=== PATIENT | male | born 1955 | race Caucasian/White ===

== ENCOUNTER 2017-06-23 12:26 | Emergency (ER) | payer OTHER ==
--- NOTE | 2017-06-23 12:46 | ED Physician Documentation ---
Trunk Injury - HISTORIAN Historian: patient - HPI Stated Complaint: back pain Chief Complaint: Trunk Injury Additional Information: he had dug a 6 foot deep by 6 foot wide trench in the ground, he was in the hole , bent over, when the wall collapsed on him. It buried him to his knees, but knocked him over backwards and his lower legs didn't move. He heard a "pop" that sounded like a shovel handle broke. 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 His pain now is mostly upper lumbar left side. Onset: minutes Where: work Context: blow Location of Pain/ Injury: lower back Severity: moderate Associated Symptoms: remembers injury, remembers coming to hosp.. denies: lost consciousness, dazed, blow to head Further Comments: no - ROS CONST: denies: recent illness NEURO/PSYCH: denies: fainting CVS/RESP: none GI/: denies: problems urinating, nausea, vomiting MS/SKIN/LYMPH: denies: leg swelling - PAST HX Other History: hypertension Immunizations: UTD Allergies/Adverse Reactions: Allergies Allergy/AdvReac Type Severity Reaction Status Date / Time No Known Allergies Allergy Unverified 06/23/17 12:41 Home Medications: Ambulatory Orders Medication Instructions Recorded Allopurinol [Zyloprim] 06/23/17 Lisinopril [Prinivil] 06/23/17 Triamterene/Hydrochlorothiazid 06/23/17 [Triamterene-Hctz 37.5-25 mg Cp] amLODIPine BESYLATE [Norvasc] 06/23/17 - SOCIAL HX Smoking History: non-smoker Alcohol Use: rarely Drug Use: none - FAMILY HX Family History: none - VITAL SIGNS Vital Signs: Vital Signs Temp Pulse Resp BP Pulse Ox 98.3 F 68 24 97/60 95 06/23/17 12:29 06/23/17 12:29 06/23/17 12:29 06/23/17 12:29 06/23/17 12:29 - REVIEWED ASSESSMENT Nursing Assessment Reviewed: Yes Vitals Reviewed: Yes ED Results Lab/Radiology - Radiology Radiology Impressions: L1 compression fracture acute, chronic arthritis , spondylosis - Orders Orders: ED Orders Category Date Time Status CT L-SPINE W/O CONTRAST Stat Exams 06/23/[address] T-SPINE W/O CONTRAST Stat Exams 06/23/17 Completed Ketorolac Tromethamine [Toradol] Med 06/23/17 13:40 Discontinued 30 mg .ROUTE .STK-MED ONE Trunk Injury Physical Exam - Physical Exam General Appearance: alert, mild distress Head: no evidence of trauma Neck: non-tender, painless ROM Eyes: EOMI ENT: nml external inspection Respiratory: chest non-tender. No: tenderness, crepitus, subcutaneous emphysema CVS: reg rate & rhythm Abdomen: non-tender Neuro/Psych: oriented x3, mood/affect nml Skin: intact, warm Back: no external sign of traum, vertebral point, limited ROM Hip/Pelvis: pelvis stable, hips non-tender Extremities: no evidence of trauma Discharge Clincal Impression: Compression fracture of lumbar vertebra Qualifiers: Encounter type: initial encounter Fracture type: closed Qualified Code(s): S32.000A - Wedge compression fracture of unspecified lumbar vertebra, initial encounter for closed fracture Lumbar back sprain Qualifiers: Encounter type: initial encounter Qualified Code(s): S33.5XXA - Sprain of ligaments of lumbar spine, initial encounter Referrals: Primary Doctor,No [Primary Care Provider] - 2 Days Home Medications: Ambulatory Orders Allopurinol [Zyloprim] 06/23/17 Lisinopril [Prinivil] 06/23/17 Triamterene/Hydrochlorothiazid [Triamterene-Hctz 37.5-25 mg Cp] 06/23/17 amLODIPine BESYLATE [Norvasc] 06/23/17 Condition: Stable Disposition: 01 HOME, SELF-CARE Decision to Admit: NO Date of Decison to Admit: 06/23/17 Decision Time: 14:26
[2017-06-23] MEDS ORDERED: KETOROLAC TROMETHAMINE 30 MG/1ML VIAL ONE (13:40)
--- NOTE | 2017-06-23 14:07 | Diagnostic Imaging Report ---
KALA NEGRON [address] [facility] [address] [place], [place]. [address] Report Submission Date: Jun 23, 2017 1:57:00 PM CDT Patient Study Name: PRINCE SHANKAR Date: Jun 23, 2017 12:49:40 PM CDT Modality Type: CT\SR Gender: M Description: CT L-SPINE W/O CONTRAS : 57 Institution: Physician: KALA NEGRON CT of the lumbar spine without contrast Clinical history: Trauma. Pain. Technique: CT of the lumbar spine is performed in contiguous axial slices without the use of contrast. Sagittal and coronal reconstructions are performed by the technologist. Findings: The alignment of the vertebrae is anatomic. Facet joints are narrowed in the mid and lower lumbar spine. The L5-S1 disc space is narrowed. There is compression fracture of the L1 vertebral body with compression of both the superior and inferior endplates with approximately 70% loss of vertebral height in the midportion of the vertebral body. There is mild buckling of the cortex in the right pedicle consistent with nondisplaced fracture extending into the pedicle. Fracture is of uncertain age, but appears to be acute. There are degenerative facet changes and hypertrophy of the ligaments as well as 2-3 mm diffuse discogenic bulge at L3-4 with resulting spinal stenosis and bilateral foraminal stenosis. There are more prominent degenerative facet changes at L4-5 with coronal stenosis of the canal. Narrowing of both neural foramina is again demonstrated at L4-5. There are degenerative facet changes at L5-S1 worse on the left with narrowing of the left lateral recess and left neural foramen. Impression: 1. Diffuse spondylosis with spinal stenosis at L3-4 and L4-5. 2. Compression fracture of superior and inferior endplates of L1 that appears to be acute. Electronically signed on Jun 23, 2017 1:57:00 PM CDT by: Charlie MAHAJAN
--- NOTE | 2017-06-23 14:07 | Diagnostic Imaging Report ---
KALA NEGRON [facility] [address] [facility] [address] [address] Report Submission Date: Jun 23, 2017 1:51:48 PM CDT Patient Study Name: PRINCE SHANKAR Date: Jun 23, 2017 12:54:08 PM CDT Modality Type: CT\SR Gender: M Description: CT T-SPINE W/O CONTRAS : 57 Institution: [facility] Physician: KALA NEGRON CT of the thoracic spine Clinical history: Trauma. Pain. Technique: CT of the thoracic spine is performed in contiguous axial slices with sagittal and coronal reconstructions. Findings: The alignment of the thoracic vertebrae is anatomic. Anterior and lateral osteophytes are present throughout the thoracic vertebrae. There is no evident fracture. Paravertebral soft tissues are within normal limits. Impression: 1. Spondylosis. 2. No fracture. Electronically signed on Jun 23, 2017 1:51:48 PM CDT by: Charlie MAHAJAN
[2017-06-23] MEDS ORDERED: KETOROLAC TROMETHAMINE 30 MG/1ML VIAL IM ONE (14:27)
[2017-06-23 14:47] VITALS: BP 108/60
== END 2017-06-23 14:46 | disposition home or self-care (01) ==
LOC: ED 12:26
DX: S32.000A Wedge compression fracture of unspecified lumbar vertebra, initial encounter for closed fracture (principal); S33.5XXA Sprain of ligaments of lumbar spine, initial encounter; X58.XXXA Exposure to other specified factors, initial encounter; Y93.9 Activity, unspecified; Y99.9 Unspecified external cause status
CPT/HCPCS: 72128; 72131; J1885; 96372; 99283